=== PATIENT | male | born 1955 | race Caucasian/White ===

== ENCOUNTER 2019-04-24 21:41 | Emergency (ER) | payer OTHER, SELFPAY ==
[2019-04-24] MEDS ORDERED: Metoprolol Tartrate 5 MG/5 ML VIAL ONE (22:22)
[2019-04-24] MEDS ORDERED: Nitroglycerin 0.4 MG TAB 1 EACH ONE (22:22)
[2019-04-24] MEDS ORDERED: Aspirin Chewable 81 MG TAB ONE (22:22)
[2019-04-24 22:31] LABS: #Basophils 0.1 thou/uL (0.0-0.2); #Eosinphils 0.1 thou/uL (0.0-0.7); #Lymphocytes 2.2 thou/uL (1.20-3.40); #Monocytes 0.8 thou/uL (0.11-0.59); #Neutrophils 4.7 thou/uL (1.40-6.50); %Basophils 1.3 % (0.0-1.0); %Eosinophils 1.8 % (0.0-10.0); %Monocytes 9.6 % (0.0-10.0); %Neutrophils 59.3 % (42.0-75.0); Hemoglobin 15.3 g/dL (14.0-18.0); Mean Corpuscular HGB CONC 33.2 g/dL (32.0-36.0); Mean Corpuscular Hemoglobin 29.7 pg (27.0-31.0); Mean Corpuscular Volume 89.7 fL (78.0-98.0); Mean Platelet Volume 8.5 fL (7.4-10.4); Platelet Count 222 thou/uL (130-400); RBC Distribution Width 12.3 % (11.5-14.5); Red Blood Cell (RBC) Count 5.16 mill/uL (4.70-6.10); White Blood Cell (WBC) Count 7.9 thou/uL (4.8-10.8)
[2019-04-24 22:42] LABS: ALT (SGPT) 35 U/L (8-55); AST (SGOT) 31 U/L (5-34); Albumin 4.6 g/dL (3.4-4.8); Alkaline Phosphatase 37 U/L (40-110); Anion Gap 12 mmol/L (10-20); BUN (Urea Nitrogen) 17 mg/dL (8.4-25.7); Bilirubin, Total 0.7 mg/dL (0.2-1.2); CK (CPK) 234 U/L (30-200); Calc. Creatinine Clearance 0 mL/min (70-130); Calcium 9.8 mg/dL (7.8-10.44); Carbon Dioxide 27 mmol/L (23-31); Chloride 103 mmol/L (98-107); Estimated GFR-MDRD 71; Globulin 3.1 g/dL (2.4-3.5); Glucose 89 mg/dL (80-115); Potassium 3.5 mmol/L (3.5-5.1); Protein, Total 7.7 g/dL (5.8-8.1); Sodium 138 mmol/L (136-145)
--- NOTE | 2019-04-24 22:50 | RAD ---
EXAM: CHEST ONE VIEW HISTORY: Chest pain COMPARISON: None FINDINGS: The cardiac silhouette and pulmonary vasculature is within normal limits. Minimal atelectasis is pres ent at each lung base. The lungs are otherwise clear. The osseous structures are intact. IMPRESSION: No acute cardiopulmonary process.
[2019-04-25 02:19] LABS: Troponin I Less than 0.010 ng/mL (< 0.028)
== END 2019-04-25 03:08 | disposition home or self-care (01) ==
LOC: ERS 21:41
DX: R07.89 Other chest pain (principal); I10 Essential (primary) hypertension; Z79.899 Other long term (current) drug therapy
CPT/HCPCS: 36415; 71045; 80053; 82550; 84484; 85025; 93005; 94760